=== PATIENT | male | born 1955 ===

== ENCOUNTER → 2016-11-08 | Outpatient (CLI) | payer BC ==
[~2016-11-08] MED LIST: ALFENTANIL 500 MCG/ML (ALFENTA) 5 ML AMP IV ONE; MIDAZOLAM 2 MG/2 ML (VERSED) VIAL ONE; PROPOFOL 20 ML IV ONE
== END ==
LOC: RAD 07:28
PROVIDERS: ATTEND Family Medicine
DX: R10.84 Generalized abdominal pain (principal); K76.0 Fatty (change of) liver, not elsewhere classified
CPT/HCPCS: 76700

== ENCOUNTER 2016-11-22 06:33 | Day surgery (SDC) | payer BC ==
[~2016-11-22] VITALS: Ht 177.8 cm; Wt 92.7 kg
[~2016-11-22 06:33] MED LIST changes: -ALFENTANIL 500 MCG/ML (ALFENTA) 5 ML AMP IV ONE; +LACTATED RINGERS 1,000 ML IV SCH; -MIDAZOLAM 2 MG/2 ML (VERSED) VIAL ONE; -PROPOFOL 20 ML IV ONE; +SODIUM CHLORIDE FLUSH 3 ML SYR IV PRN
[2016-11-22 06:38] VITALS: BP 114/83
[2016-11-22] MEDS ORDERED: SCOPOLAMINE 1.5 MG (TRANSDERM-SCOP) PATCH TD ONE (07:14)
[2016-11-22] MEDS ORDERED: diphenhydrAMINE 50 MG/ML INJ (BENADRYL) ONE (07:14)
[2016-11-22] MEDS ORDERED: ONDANSETRON 2 MG/ML (Z0FRAN) 2 ML VIAL ONE (07:14)
[2016-11-22 07:58] VITALS: BP 126/77
[2016-11-22 08:21] VITALS: BP 118/82
== END 2016-11-22 08:29 | disposition home or self-care (01) ==
LOC: ASC 06:33
PROVIDERS: ATTEND Surgery
DX: Z12.11 Encounter for screening for malignant neoplasm of colon (principal); D12.5 Benign neoplasm of sigmoid colon; E66.9 Obesity, unspecified; Z68.30 Body mass index [BMI] 30.0-30.9, adult
CPT/HCPCS: 45380; J2250; J7120